=== PATIENT | female | born 1965 | race Caucasian/White ===

== ENCOUNTER 2021-07-05 11:45 | Emergency (ER) | payer BC, SELFPAY ==
[2021-07-05 11:50] VITALS: BP 137/72; PULSE 69; RESP 16; TEMP 36.6; O2SAT 100
--- NOTE | 2021-07-05 12:03 | ED.FEMALEGU ---
HPI - Female Genitourinary General Chief complaint: Urogenital-Female Stated complaint: POS UTI History of Present Illness HPI Narrative: Patient is a 56-year-old female who presents complaining of urinary frequency and bloating x4 days. She denies dysuria. She denies visible blood. She denies history of UTI. Patient has not taken any [id number] medications prior to arrival. Patient denies significant medical history at this time. MD elicited complaint: UTI Related Data Home Medications Medication Instructions Recorded Confirmed albuterol sulfate 90 mcg INHALATION Q4-6H PRN 07/05/21 07/05/21 bupropion HCl 150 mg PO DAILY 07/05/21 07/05/21 citalopram 10 mg PO DAILY 07/05/21 07/05/21 estradiol 0.5 mg PO DAILY 07/05/21 07/05/21 levothyroxine 25 mcg PO DAILY 07/05/21 07/05/21 mometasone [Asmanex HFA] 100 mcg INHALATION BID 07/05/21 07/05/21 ropinirole 1 mg PO DAILY 07/05/21 07/05/21 Allergies Allergy/AdvReac Type Severity Reaction Status Date / Time levofloxacin Allergy Mild Hives Verified 07/05/21 11:54 Review of Systems Review of Systems: CONSTITUTIONAL: Denies fever, chills, or sweats. EYES: Denies visual changes, redness, or discharge. ENT: Denies rhinorrhea, congestion, sore throat, or otalgia. CARDIOVASCULAR: Denies chest pain, palpitations, or edema. RESPIRATORY: Denies cough or dyspnea. GASTROINTESTINAL: Denies abdominal pain, nausea, vomiting, or diarrhea. GENITOURINARY: Reports urinary frequency and bloating SKIN: Denies rash or itching. MUSCULOSKELETAL: Denies back pain, joint pain, or myalgia. NEUROLOGIC: Denies headache, numbness, dizziness, or weakness. PSYCHIATRIC: Denies anxiety or depression. [facility] Past Medical History Medical History Asthma IBS (irritable bowel syndrome) Osteoporosis Surgical History Surgical History History of hysterectomy Social History Social History (Updated 07/05/21 @ 12:07 by JG Arriaga) Smoking status: Never smoker Alcohol intake: current Alcohol use details: Occasional Substance use: never Comments At the time of signature, I have reviewed and agree with nursing past medical, surgical, social, and family history unless otherwise noted. Please see nursing chart for further information. There is no relevant family history pertinent to the presenting complaint. Exam Narrative: GENERAL: Well-appearing, well-nourished, and in no acute distress. HEAD: Normocephalic, atraumatic. EYES: EOMI. No redness or drainage. Conjunctiva are normal. ENT: Mucous membranes pink and moist. CHEST: No respiratory distress. HEART: Regular rate and rhythm. GI/: Mild tenderness with palpation over bladder, no distention. EXTREMITIES: Normal range of motion. No edema. SKIN: Warm, dry, no rash. NEURO: No focal deficits. Alert and oriented x3. Gait steady. PSYCH: Normal affect. No signs of depression or anxiety. Course Vital Signs Vital signs: Vital Signs Temperature 36.6 C 07/05/21 11:50 Pulse Rate 69 07/05/21 11:50 Respiratory Rate 16 07/05/21 11:50 Blood Pressure 137/72 07/05/21 11:50 Pulse Oximetry 100 07/05/21 11:50 Temperature 36.6 C 07/05/21 11:50 Pulse Rate 69 07/05/21 11:50 Respiratory Rate 16 07/05/21 11:50 Blood Pressure 137/72 07/05/21 11:50 Pulse Oximetry 100 07/05/21 11:50 Reviewed-patient is informed that they may have pre-hypertension or hypertension based on a blood pressure reading. I recommend the patient call the primary care provider listed on their discharge instructions or a physician of their choice this week to arrange follow-up for further evaluation of possible pre-hypertension or hypertension. MDM - Female Genitourinary MDM Narrative Medical decision making narrative: Patient has leukocytes and blood. Discussed with patient treatment for UTI at this time. Patient to
== END 2021-07-05 12:22 | disposition home or self-care (01) ==
PROVIDERS: Emergency Provider Nurse Practitioner; PCP Internal Medicine Geriatric Medicine
DX: N39.0 Urinary tract infection, site not specified (principal); J45.909 Unspecified asthma, uncomplicated; M81.0 Age-related osteoporosis without current pathological fracture
CPT/HCPCS: 81003; 87086; 87088; 99203; G0463

== ENCOUNTER 2023-08-20 00:18 | Emergency (ER) | payer BC, SELFPAY ==
[2023-08-20] VITALS (21 sets, daily range): BP systolic 103–143; BP diastolic 61–116; PULSE 45–103; RESP 11–25; TEMP 36.3; O2SAT 88–100
--- NOTE | ~2023-08-20 | CT_ITS ---
EXAMINATION: CT abdomen pelvis w con DATE: 08/20/2023 01:50 INDICATION: Generalized abdominal pain, nausea and vomiting TECHNIQUE: Computed tomography (CT) of the abdomen and pelvis was performed with 95 CC Omnipaque 350 intravenous contrast. Automated exposure control and iterative reconstruction technique were employed . Exam dose: 171.21 mGy-cm total exam DLP. COMPARISON: None. FINDINGS: The lung bases are clear. Normal heart size. No pericardial or pleural effusion. Status post cholecystectomy. This may account for mild prominence of the bile ducts. No hepatic or pancreatic space-occupying mass lesion or pancreatic duct dilatation. Normal splenic si ze. Normal morphology of the adrenal glands. 3 mm probable right renal cyst. No renal mass lesion is noted otherwise. No urinary tract calculus or hydroureteronephrosis is evident. The urinary bladder is unremarkable. Status post hysterectomy. Normal caliber of the abdominal aorta. No intraperitoneal or retroperitoneal or pelvic mass lesion or adenopathy is detected. There is a prominent amount of fecal material in the colon. No bowel obstruction or free air is evide nt. There is mild ascites. No hepatic surface nodularity or splenomegaly. 8 mm grade 2 anterolisthesis at L4-5. There is severe degenerative change at the apophyseal joints at L4-5 and L5-S1. 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 IMPRESSION: Mild ascites Status post cholecystectomy Status post hysterectomy Prominent amount of fecal material in the colon; no bowel obstruction or free air is detected Reviewed, dictated and finalized at [facility]. Reviewed, dictated and finalized at [facility]. IMPRESSION: Mild ascites Status post cholecystectomy Status post hysterectomy Prominent amount of fecal material in the colon; no bowel obstruction or free a ir is detected
--- NOTE | 2023-08-20 00:26 | ED.GENADULT ---
HPI - General Adult General Chief complaint: Abdominal Pain <Amish Cunningham PA-C - Last Filed: 08/20/23 17:38> Stated complaint: abd pain <Amish Cunningham PA-C - Last Filed: 08/20/23 17:38> Time Seen by Provider: 08/20/23 00:26 <Amish Cunningham PA-C - Last Filed: 08/20/23 17:38> Source: patient <Amish Cunningham PA-C - Last Filed: 08/20/23 17:38> Mode of arrival: ambulatory <TEGAN Diaz Last Filed: 08/20/23 17:38> Limitations: no limitations <Amish Cunningham PA-C - Last Filed: 08/20/23 17:38> History of Present Illness HPI narrative: This is a 58-year-old female who presents to the ED with chief complaint of generalized abdominal pain and N/V since 1400 yesterday. Reports pain has been constant and increasing today. Reports the pain is all over but may be a little worse in the lower abdomen. Denies any radiation of pain. States she took Tums, Pepto-Bismol and Zofran prior to arrival without relief. Reports she has had multiple episodes of vomiting today. Denies any GI bleeding symptoms. Denies troubles with bowel movements or urinary problems. States last bowel movement was 3 days ago. Endorses obstipation. Denies fevers, chills, chest pain, shortness of breath, cough. Reports past abdominal surgical history of hysterectomy and cholecystectomy. <Amish Cunningham PA-C - Last Filed: 08/20/23 17:38> Related Data Home medications: Home Medications Medication Instructions Recorded Confirmed albuterol sulfate 90 mcg/actuation 90 mcg inhalation Q4-6H PRN 07/05/21 07/05/21 aerosol inhaler Shortness Of Breath Or Wheezing bupropion HCl 150 mg tablet,12 hr 150 mg PO DAILY 07/05/21 07/05/21 sustained-release citalopram 10 mg tablet 10 mg PO DAILY 07/05/21 07/05/21 estradiol 0.5 mg tablet 0.5 mg PO DAILY 07/05/21 07/05/21 levothyroxine 25 mcg tablet 25 mcg PO DAILY 07/05/21 07/05/21 mometasone 100 mcg/actuation HFA 100 mcg inhalation BID 07/05/21 07/05/21 aerosol inhaler (Asmanex HFA) ropinirole 1 mg tablet 1 mg PO DAILY 07/05/21 07/05/21 <Amish Cunningham PA-C - Last Filed: 08/20/23 17:38> Allergies/adverse reactions: Allergies Allergy/AdvReac Type Severity Reaction Status Date / Time levofloxacin Allergy Mild Hives Verified 07/05/21 11:54 <Amish Cunningham PA-C - Last Filed: 08/20/23 17:38> Review of Systems Review of Systems: All systems as dictated in HPI <Amish Cunningham PA-C - Last Filed: 08/20/23 17:38> [facility] Past Medical History Medical History: Medical History Asthma IBS (irritable bowel syndrome) Osteoporosis <Amish Cunningham PA-C - Last Filed: 08/20/23 17:38> Surgical History Surgical History: Surgical History History of hysterectomy <Amish Cunningham PA-C - Last Filed: 08/20/23 17:38> Social History Social History: Social History (Updated 07/05/21 @ 12:07 by Rebecca Martin, JG) Smoking status: Never smoker Alcohol intake: current Alcohol use details: Occasional Substance use: never <Amish Cunningham PA-C - Last Filed: 08/20/23 17:38> Exam Narrative: GENERAL: Appears in pain. Appears anxious. Hyperventilating. HEAD: Normocephalic, atraumatic. EYES: PERRLA and EOMI. ENT: Nares clear, no rhinorrhea or epistaxis. Mucous membranes moist. Oropharynx without tonsillar hypertrophy exudate or other lesions. NECK: Supple. No adenopathy or masses. CHEST: No respiratory distress. Clear to auscultation. No wheezes rales or rhonchi HEART: Regular rate and rhythm. No murmur heard. Normal peripheral pulses. ABDOMEN: Generalized abdominal tenderness. Negative flank tenderness bilaterally. Soft, nondistended, normal active bowel sounds. Negative peritoneal signs. MSK: Normal range of motion. No edema. SKIN: Warm, dry, no rash. NEURO: Alert and oriented x3. No focal deficits. PSYCH: Normal moo
--- NOTE | 2023-08-20 00:35 | ECG_ITS ---
Measurements Intervals Vestal Rate: 58 P: 78 MD: 128 QRS: 61 QRSD: 83 T: 70 QT: 462 QTc: 455 Interpretive Statements SINUS BRADYCARDIA BASELINE ARTIFACT IN aVL BORDERLINE ECG NO PREVIOUS ECG AVAILABLE FOR COMPARISON Electronically Signed On 08-20-2023 13:41:41 CDT by Ryan Sifuentes M.D.
[2023-08-20] MEDS: SODIUM CHLORIDE 0.9% IV 1,000 ML 999 ML IV CONT (00:45)
[2023-08-20] MEDS: MORPHINE SULFATE (*CRX) 4 MG/ML INJ IV PUSH ×2 (00:46→02:31)
[2023-08-20] MEDS: METOCLOPRAMIDE HCL INJ 10 MG/2 ML VIAL IV PUSH (00:46)
[2023-08-20 00:56] LABS: Basophils Absolute Auto 0.1 K/mm3 (0.0-0.1); Basophils Percent Auto 0.5 % (0.2-1.2); Eosinophils Absolute Auto 0.1 K/mm3 (0-0.3); Eosinophils Percent Auto 0.6 % (0-4.4); Hematocrit 41.4 % (37.0-47.0); Hemoglobin 13.9 g/dL (12.0-15.0); Immature Granulocyte Absolute 0.04 K/mm3 (0.00-0.031); Immature Granulocyte Percent A 0.3 % (0-0.5); Lymphocytes Percent Auto 15.1 % (18.3-44.2); Mean Corpuscular HGB Conc 33.6 g/dl (32-36); Mean Corpuscular Hemoglobin 31.2 pg (26-34); Mean Corpuscular Volume 92.8 fl (80-100); Mean Platelet Volume 10.6 fl (7.4-10.4); Monocytes Absolute Auto 0.8 K/mm3 (0.1-0.6); Monocytes Percent Auto 6.6 % (2.6-8.5); Neutrophils Absolute Auto 9.7 K/mm3 (1.3-6.7); Neutrophils Percent Auto 76.9 % (45.5-73.1); Platelet Count Result 318 k/mm3 (150-375); Red Blood Count 4.46 M/mm3 (4.2-5.4); Red Cell Distribution Width 12.1 % (11.5-14.5); White Blood Count 12.6 K/mm3 (4.5-10.0)
[2023-08-20 01:10] LABS: Alanine Aminotransferase 32 U/L (6-35); Albumin Level 4.8 g/dL (3.5-5.1); Alkaline Phosphatase 71 U/L (38-126); Anion Gap 15 mmol/L (8-16); Aspartate Amino Transferase 40 U/L (14-36); Bilirubin,Total 0.8 mg/dL (0.2-1.3); Blood Urea Nitrogen 16 mg/dL (7-17); Calcium 10.2 mg/dL (8.4-10.2); Carbon Dioxide 18 mmol/L (22-30); Chloride 100 mmol/L (98-107); Estimated CRCL calculation 41 ml/min; Estimated Glomerular Filt Rate > 60; Glucose 139 mg/dL (65-110); Lipase 91 U/L (23-300); Potassium 4.1 mmol/L (3.4-5.0); Sodium 133 mmol/L (137-145)
--- NOTE | 2023-08-20 03:12 | PC.NURSE ---
This RN assumed care of patient. This RN took patient report from FELICITY Brooks.
[2023-08-20 03:13] LABS: Appearance Urine Cloudy (Clear); Bacteria Urine 1+ /hpf; Bilirubin Urine Negative (Negative); Blood Urine Negative (Negative); Color Urine Yellow (Yellow); Glucose Urine UA Negative (Negative); Ketones Urine 1+ mg/dL (Negative); Leukocyte Esterase Ur 2+ LEU/UL (Negative); Mucus Urine Present /lpf; Need Manual Microscopic Reviewed; Nitrate Urine Negative (Negative); Non Pathogenic Casts 0-2; Protein Urine Trace mg/dL (Negative); Squamous Epithelial Cell Urine Many /hpf (Few); WBC Urine 21-50 /hpf
[2023-08-20 03:14] LABS: Specific Grav Ur 1.054 (1.001-1.035)
[2023-08-20 03:15] LABS: Add Urine Microscopic? YES
[2023-08-20] MEDS: ONDANSETRON INJ 4 MG/2 ML VIAL IV PUSH (05:37)
== END 2023-08-20 07:18 | disposition home or self-care (01) ==
PROVIDERS: Physician Assistant; Emergency Provider Emergency Medicine; PCP Internal Medicine Geriatric Medicine
DX: K59.00 Constipation, unspecified (principal)
CPT/HCPCS: 36415; 74177; 80053; 81001; 83690; 85025; 87086; 87088; 87147; 93005; 96361; 96374; 96375; 96376; 99284; J2270; J2405; J2765; J7030; Q9967

== ENCOUNTER 2024-05-28 11:33 | Outpatient (CLI) | payer BC, SELFPAY ==
--- NOTE | ~2024-05-28 | XR_ITS ---
XR knee LT min 4V Ordering provider: Daniel Rowell, History: . No injury chronic bilateral knee pain for 4 months . Comparison: None. FINDINGS: BONES: No acute fracture or dislocation. JOINT SPACES: Slight narrowing of the medial compartment. SOFT TISSUES: Normal. IMPRESSION: No acute osseous abnormality left knee. Mild osteoarthritic changes. Reviewed, dictated and finalized at [facility].
--- NOTE | ~2024-05-28 | XR_ITS ---
XR knee RT min 4V Ordering provider: Daniel Rowell, History: . No injury chronic bilateral knee pain for 4 months . Comparison: None. FINDINGS: BONES: No acute fracture or dislocation. JOINT SPACES: Normal. SOFT TISSUES: Normal. IMPRESSION: No acute osseous abnormality right knee. Reviewed, dictated and finalized at [facility].
== END 2024-05-28 11:34 ==
PROVIDERS: PCP Internal Medicine Geriatric Medicine; Visit Provider Internal Medicine Geriatric Medicine
DX: M25.561 Pain in right knee (principal); G89.29 Other chronic pain; M17.12 Unilateral primary osteoarthritis, left knee
CPT/HCPCS: 73564